=== PATIENT | female | born 1960 | race Caucasian/White ===

== ENCOUNTER 2016-03-14 05:23 | Day surgery (SDC) | payer OTHER ==
[2016-03-13 10:47] VITALS: BMI 23.1
[~2016-03-14] VITALS: Ht 170.2 cm; Wt 68.5 kg
[2016-03-14] VITALS (9 sets, daily range): BP systolic 102–128; BP diastolic 51–62; PULSE 72–84; RESP 15–22; Ht 170.2 cm; Wt 68.5 kg
[~2016-03-14 05:23] MED LIST: CITALOPRAM; CLONAZEPAM; PREMPRO; [UNRECOGNIZED DRUG - OTHER]
[2016-03-14] MEDS ORDERED: SIMV40TA7 PO (05:55)
[2016-03-14] MEDS ORDERED: ESTR1TAB15 PO (05:55)
[2016-03-14] MEDS ORDERED: CEFAZOLIN 2 GM/50 ML (PMX) 50 ML IVPB ONE (06:00)
[2016-03-14] MEDS ORDERED: BUPIVACAINE 0.25% (MPF) 30 ML INJ ONE (06:56)
[2016-03-14] MEDS ORDERED: MUPIROCIN 2% 15 GM CR ONE (06:56)
[2016-03-14] MEDS ORDERED: LIDOCAINE 1%/EPI 30 ML INJ ONE (06:56)
[2016-03-14] MEDS ORDERED: MINERAL OIL LIGHT 10 ML VIAL ONE (06:56)
--- NOTE | 2016-03-14 07:29 | HPN ---
Date/Time of Note Date/Time of Note DATE: 03/14/16 TIME: 07:29 Interval H&P Admission Note Pt. seen H&P reviewed: No system changes CHELI CASTILLO MD Mar 14, 2016 07:29
[2016-03-14] MEDS ORDERED: FENTAnyl 50 MCG/ML VIAL ONE (07:34)
[2016-03-14] MEDS ORDERED: MIDAZOLAM 1 MG/ML 2 ML INJ ONE (07:34)
[2016-03-14] MEDS ORDERED: MEPERIDINE 25 MG INJ IV PRN (08:30)
[2016-03-14] MEDS ORDERED: FENTAnyl 50 MCG/ML VIAL IV PRN (08:30)
[2016-03-14] MEDS ORDERED: ONDANSETRON 4 MG INJ IV PRN ×2 (08:30→09:00)
[2016-03-14] MEDS ORDERED: DIPHENHYDRAMINE 50 MG INJ IV PRN (08:30)
[2016-03-14] MEDS ORDERED: HYDROmorphONE (0.2 MG/ML) 10ML SYG IV PRN ×2 (08:30)
[2016-03-14] MEDS ORDERED: ONDANSETRON 4 MG INJ ONE (08:37)
[2016-03-14] MEDS ORDERED: LIDOCAINE 2% (SDV) 5 ML INJ ONE (08:37)
[2016-03-14] MEDS ORDERED: CEFAZOLIN 1 GM INJ ONE (08:37)
[2016-03-14] MEDS ORDERED: PROPOFOL 20 ML ONE (08:37)
--- NOTE | 2016-03-14 08:44 | OPR ---
Date/Time of Note Date/Time of Note DATE: 03/14/16 TIME: 08:39 Operative Report Free Text/Dictation Plastic Surgery Operative Report Preoperative diagnosis: left leg basal cell Postoperative diagnosis: same Procedure: excision of left leg basal cell Surgeon: nathanael Pacheco.:none Anesthesia:gen EBL:min IV fluids:per flow sheet Findings:n/a Complications:none Dispo:home Indications for procedure: 56-year-old female presents today for wide local excision of a left leg basal cell and a possible skin graft. The risks, benefits , alternatives of performing this procedure were discussed with the patient including the risks of bleeding, infection, wound healing problems, partial or total graft loss, leg deformity, need for revision, need for reexcision, and the patient states that she understands these risks and would like to proceed with the procedure. All questions were answered, no guarantees were given with regards to the outcome of this procedure. Description of procedure: The patient was brought to the operating room at [facility] where general anesthesia was induced. Next the patient was prepped and draped in usual sterile fashion. A total of 20 mL of 1% lidocaine with 1:200,000 epinephrine were injected into the planned excision site and graft site in the left thigh. Next, the 15 blade was used to excise circumferentially around the marked lesion. This was sent for pathology with a short stitch superior and long stitch lateral. Total specimen size was 3.2 x 1.5 cm. The pathology report was negative. The wound was then inspected, and although a graft had implant initially, it was apparent that the wound edges to come together without undue tension. Therefore the wound edges were closed with a deep layer of 3-0 Vicryl sutures and then 3-0 Vicryl sutures on the dermis. A superior and inferior dogear was trimmed. Next, a 4-0 Monocryl suture was used to close the skin. The incisions dressed with Dermabond. A posterior mold splint was placed with extra padding on the heel. The patient tolerated this well, there were no complications, she'll follow up next week CHELI CASTILLO MD Mar 14, 2016 08:44
[2016-03-14] MEDS ORDERED: morphine 2 MG INJ IV PRN (09:00)
[2016-03-14] MEDS ORDERED: HYDROCODONE/APAP (5/325) TAB PO PRN (09:00)
[2016-03-14] MEDS ORDERED: OXYCODONE/ACETAMINOPHEN (5/325) TAB PO PRN (09:00)
== END 2016-03-14 10:30 | disposition home or self-care (01) ==
LOC: SDS 05:23
PROVIDERS: ATTEND Surgery Plastic and Reconstructive Surgery
DX: C44.719 Basal cell carcinoma of skin of left lower limb, including hip (principal)
CPT/HCPCS: 11604; 12032; 84703; 88307; 88331; J0690; J2250; J2405; J3010; L3260; Z7512; Z7610